=== PATIENT | female | born 1990 | race Asian ===

== ENCOUNTER 2019-10-18 15:48 | Emergency (ER) | payer BC ==
[~2019-10-18] VITALS: Ht 157.5 cm; Wt 59.0 kg
[2019-10-18] MEDS ORDERED: KETOROLAC 60 MG/2 ML VIAL IM ONE (16:30)
[2019-10-18 17:52] VITALS: BP 131/89
== END 2019-10-18 17:52 | disposition home or self-care (01) ==
LOC: EDBD 15:48 → MED 15:48
DX: S16.1XXA Strain of muscle, fascia and tendon at neck level, initial encounter (principal); M62.838 Other muscle spasm; G43.909 Migraine, unspecified, not intractable, without status migrainosus; X58.XXXA Exposure to other specified factors, initial encounter; Y93.89 Activity, other specified; Y92.89 Other specified places as the place of occurrence of the external cause; Y99.8 Other external cause status
CPT/HCPCS: 72040; 81002; 81025; 96372; 99283; J1885